=== PATIENT | male | born 1985 | race Caucasian/White ===

== ENCOUNTER 2016-12-27 14:26 | Emergency (ER) | payer OTHER ==
[~2016-12-27] VITALS: Ht 185.4 cm; Wt 80.5 kg
[~2016-12-27 14:26] MED LIST: NOHOMEMEDS
[2016-12-27 14:57] LABS: HEMATOCRIT 45.7 % (38.0-50.0); MCH 31.6 PG (29.0-34.0); MCHC 34.4 G/DL (30.0-36.0); PLATELET COUNT 326 K/uL (156-360); RBC DIS.WIDTH-SD 40.8 % (39-53); RED BLOOD COUNT 4.97 M/uL (4.00-5.50); WHITE BLOOD COUNT 17.4 K/uL (4.1-10.2)
[2016-12-27 15:07] LABS: CHLORIDE 102 mEq/L (99-109); POTASSIUM 4.4 mEq/L (3.7-5.4); SODIUM 140 mEq/L (136-147)
[2016-12-27 15:09] LABS: GLUCOSE 139 mg/dL (70-99)
[2016-12-27 15:10] LABS: ANION GAP 11 MEQ/L (2-14)
[2016-12-27 15:13] LABS: GFR ESTIMATE (CALCULATED) > 59 mL/min/
[2016-12-27 15:14] LABS: UREA NITROGEN (BUN) 23 mg/dL (9-23)
[2016-12-27 15:18] LABS: ADD MIUA? YES; BILIRUBIN NEGATIVE; BLOOD NEGATIVE; COLOR YELLOW ((YELLOW)); GLUCOSE (STRIP) NEGATIVE; KETONES 20; LEUKOCYTES NEGATIVE; NITRITE NEGATIVE; PROTEIN (STRIP) 30; SPECIFIC GRAVITY 1.028 (1.000-1.030); UROBILINOGEN 0.2 MG/DL (0.2-1.0)
[2016-12-27 16:15] LABS: AMORPHOUS URATES CRYSTALS 1+; BACTERIA 2+ /HPF; CASTS PRESENT /LPF; CRYSTALS PRESENT; EPITHELIAL CELLS NONE SEEN /HPF; HYALINE CASTS 0-5 /LPF; MUCUS 3+ /LPF; RED BLOOD CELLS 0-5 /HPF (0-5); WHITE BLOOD CELLS 0-5 /HPF (0-5)
[2016-12-27] MEDS ORDERED: KEFLEX500 MG PO (16:43)
[2016-12-27] MEDS ORDERED: ZOFRAN ODT4 MG PO (16:43)
[2016-12-27] MEDS ORDERED: FLOMAX0.4 MG PO (16:43)
[2016-12-27] MEDS ORDERED: PERCOCET 5/31 TABLET PO (16:43)
[2016-12-27 17:01] VITALS: BP 130/73
== END 2016-12-27 17:03 | disposition home or self-care (01) ==
LOC: EME 14:26
PROVIDERS: Physician Assistant
DX: N20.0 Calculus of kidney (principal)
CPT/HCPCS: 74176; 80048; 81003; 85027; 87086; 99281; 99284; J1885

== ENCOUNTER 2017-04-21 20:10 | Emergency (ER) | payer OTHER ==
[~2017-04-21] VITALS: Ht 185.4 cm; Wt 77.8 kg
[~2017-04-21 20:10] MED LIST changes: +FLOMAX0.4 MG PO; +KEFLEX500 MG PO; +PERCOCET 5/31 TABLET PO; +ZOFRAN ODT4 MG PO
[2017-04-21 21:30] LABS: HEMATOCRIT 45.4 % (38.0-50.0); MCH 31.5 PG (29.0-34.0); MCHC 34.1 G/DL (30.0-36.0); MCV 92.3 FL (86-99); MEAN PLAT.VOLUME 9.6 uM^3 (9.0-12.4); PLATELET COUNT 231 K/uL (156-360); RBC DIS.WIDTH-CV 12.1 % (11.8-14.6); RBC DIS.WIDTH-SD 41.6 % (39-53); RED BLOOD COUNT 4.92 M/uL (4.00-5.50); WHITE BLOOD COUNT 8.6 K/uL (4.1-10.2)
[2017-04-21 21:38] LABS: CHLORIDE 100 mEq/L (99-109); POTASSIUM 3.4 mEq/L (3.7-5.4); SODIUM 137 mEq/L (136-147)
[2017-04-21 21:40] LABS: GLUCOSE 135 mg/dL (70-99)
[2017-04-21 21:41] LABS: ANION GAP 10 MEQ/L (2-14)
[2017-04-21 21:42] LABS: TOTAL BILIRUBIN 0.4 mg/dL (0.0-1.0)
[2017-04-21 21:43] LABS: ALKALINE PHOSPHATASE 54 IU/L (3-129)
[2017-04-21 21:44] LABS: GFR ESTIMATE (CALCULATED) > 59 mL/min/
[2017-04-21 21:45] LABS: UREA NITROGEN (BUN) 29 mg/dL (9-23)
[2017-04-21] MEDS ORDERED: KEFLEX500 MG PO (23:14)
[2017-04-21 23:50] VITALS: BP 130/75
== END 2017-04-21 23:51 | disposition home or self-care (01) ==
LOC: EME 20:10
DX: L03.311 Cellulitis of abdominal wall (principal)
CPT/HCPCS: 74177; 80053; 81003; 85027; 99281; 99283; J0696; J1885; J7040; J7050